=== PATIENT | male | born 1955 | race Caucasian/White ===

== ENCOUNTER 2017-12-04 06:04 | Day surgery (SDC) | payer BC ==
[2017-12-03 11:42] VITALS: BMI 33.8
[2017-12-04] MEDS ORDERED: MIDAZOLAM HCL 2 MG/2 ML SINGLE DOSE VIAL ONE ×2 (07:22→08:31)
[2017-12-04] MEDS ORDERED: ROPIVACAINE HCL 0.5% 30ML VIAL ONE (07:35)
[2017-12-04] MEDS ORDERED: DEXAMETHASONE SOD PHOSPHATE/PF 10 MG/ML SDV ONE (07:35)
[2017-12-04] MEDS ORDERED: PROPOFOL 20 ML ONE ×2 (07:52)
[2017-12-04] MEDS ORDERED: SUCCINYLCHOLINE CHLORIDE 200 MG/10 ML VIAL ONE (07:53)
[2017-12-04] MEDS ORDERED: ceFAZolin SODIUM 1 GM VIAL IVPB ONE (08:29)
--- NOTE | 2017-12-04 09:20 | HP ---
Satellite H - Chief Complaint Chief Complaint: left shoulder pain - Past Medical History Allergies/Adverse Reactions: Allergies Allergy/AdvReac Type Severity Reaction Status Date / Time codeine AdvReac Mild Verified 12/04/17 06:31 - Current Medications Current Medications: Home Medications Medication Instructions Recorded Allopurinol [Zyloprim -] 100 mg PO DAILY 09/04/13 Albuterol Sulfate Inhaler - 1 - 2 inh PO Q4H PRN 12/03/17 [Ventolin HFA Inhaler -] Oxycodone HCl/Acetaminophen 1 - 2 tab PO Q6H #30 tab MDD 6 12/04/17 [Percocet 5-325 mg Tablet] Satellite Physical Exam - Physical Examination Vital Signs: Vital Signs Period Temp Pulse Resp BP Sys/Bonner Pulse Ox Last 24 Hr 98.4 F-98.4 F 78-78 20-20 122-122/76-76 95 General Appearance: Well Nourished, Well Developed, Alert & Oriented x3 ENT: Clear Lung: Normal air movement Heart: Regular rate & rhythm Extremities: Other (left shoulder- + ttp, decr rom, + empty can, + neer, + chew, nvi MRI + rct) Neurological: Intact, Alert, Oriented Satellite Impression/Plan - Impression/Plan Impression: left shoulder rct Operative Procedure: left shoulder arthroscopy with EDI HILLIARD Date to be Performed: 12/04/17
--- NOTE | 2017-12-04 09:21 | OP ---
Operative Note - Note: Operative Date: 12/04/17 ([facility]) Pre-Operative Diagnosis: left shoulder rct Operation: left shoulder arthroscopy with RCR, SAD Implants: arthrex speedbridge Post-Operative Diagnosis: Same as Pre-op Surgeon: Asher Robb Cooker Pie Filling: Reyes Echavarria) Anesthesiologist/DIRECTOR OF ENTERPRISE APPLICATIONS: Robert Diaz Anesthesia: General, Local Specimens Removed: shavings Estimated Blood Loss (mls): 10 Operative Report Dictated: Yes
[2017-12-04] MEDS ORDERED: ONDANSETRON 4 MG/2 ML VIAL IVPUSH PRN (09:32)
[2017-12-04] MEDS ORDERED: oxyCODONE HCL 5 MG TABLET PO PRN (09:32)
[2017-12-04] MEDS ORDERED: LACTATED RINGERS SOLUTION 1,000 ML IV SCH (09:45)
--- NOTE | 2017-12-04 10:39 | SPEC ---
DATE OF OPERATION: 12/04/2017 PREOPERATIVE DIAGNOSIS: Left rotator cuff tear. POSTOPERATIVE DIAGNOSIS: Left rotator cuff tear. PROCEDURE: Left rotator cuff repair arthroscopically with SpeedBridge and subacromial decompression. SURGICAL ATTENDING: Asher Robb MD RAILROAD BRAKEMAN: LEOBARDO Vitale, and Vitaly Pierson MD ANESTHESIA: Regional and general with endotracheal intubation. CLOSURE: SpeedBridge for repair, 3-0 nylon for skin. ESTIMATED BLOOD LOSS: Negligible. COMPLICATIONS: None. CONDITION: To recovery room in stable condition. DESCRIPTION OF OPERATIVE PROCEDURE: The patient was taken to the operating room on December 04, 2017. General and regional anesthesia was administered by the anesthesiologist. IV Kefzol was administered prophylactically prior to the case. The patient was placed in the beach chair position with all prominences well padded. The left shoulder area was prepped and draped in the usual sterile fashion. First, a diagnostic arthroscopy of the glenohumeral joint was made. Posterior portal was made 2 fingerbreadths below the acromion with a 15 blade followed by a blunt trocar. Circumferential exam of the glenohumeral joint revealed the following: Intact labrum circumferentially, intact glenoid and humeral head articular cartilage, intact biceps and biceps anchor, intact subscapularis through its insertion. Looking superiorly, there was a large rotator cuff tear. The fluid was drained from the shoulder, and the trocar was removed. The posterior trocar was redirected in the subacromial space. An accessory lateral and anterior portal were made with a 15 blade followed by a blunt trocar. The lateral portal was used as the working portal. Through this portal, an ArthroCare device was applied. This was used to debride the soft tissue in the subacromial aspect. The coracoacromial ligament was identified and detached off the anterior acromion and was visualized to drop inferiorly and was further debrided. The bone on the undersurface of the acromion was burred to the appropriate level giving appropriate height for the rotator cuff beneath. Looking inferiorly, there was a large rotator cuff tear, soft tissue encasing the rotator cuff, and the deltoid recess was debrided using ArthroCare device and the shaver. The bed on the greater tuberosity was burred to give a good bed for the double row SpeedBridge repair. A grasper was used to ensure that the rotator cuff was able to be reduced sufficiently to the greater tuberosity. The rotator cuff was freed on the bursal and the articular surface to allow more excursion of the tendon. Two anchors preloaded with FiberTape suture were placed on the articular margin, one more anteriorly, one more posteriorly. They were shuttled through the anterior portal with a grasper. Each limb was individually passed through the rotator cuff, two anteriorly and two posteriorly. One anterior limb and one posterior limb was delivered through the lateral portal. They were placed through the eyelet hole of the more lateral anchor, which was then malleted into place much more laterally, reducing the rotator cuff to the greater tuberosity. The swivel was then screwed into place. The sutures were then cut flush with the bone. Next, one anterior and one posterior limb that was remaining were shuttled from the anterior to the lateral portal. The sutures were placed through the eyelet hole of the anterior anchor, which was malleted on the anterior aspect of the greater tuberosity. After tensioning it, it was deployed the entire way and then screwed home giving an excellent reduction to the anterior portion of the rotator cuff. After the sutures were cut, the rotator cuff was probed and found to have good stability with excellent matting down of the rotator cuff to the greater tuberosity. The shoulder was taken through the range of motion and found to have good clearance on the undersurface of the acromion with good, solid repair. The shoulder was drained of the fluid. The portals were closed with 3-0 nylon suture. A sterile pressure dressing followed by a shoulder immobilizer was applied. The patient was awoken from anesthesia and transferred to recovery room in stable condition. No complications. Estimated blood loss negligible. Joao [id number]
[2017-12-04 11:57] VITALS: BP 100/72; PULSE 78; TEMP 97.8
--- NOTE | 2017-12-05 17:02 | PATH ---
Surgical Pathology Report Patient Name: TANNER TALAMANTES JR [facility]. Rec. #: [id number] /Age/Gender: 1955 (Age: 62) / M Account: [id number] Location: [facility] SUR[facility] Taken: 12/04/2017 Received: 12/04/2017 Reported: 12/05/2017 Physicians: Vitaly Pierson M.D. Specimen(s) Received LEFT SHOULDER SHAVINGS Clinical History Left shoulder rotator cuff repair Final Diagnosis SHOULDER SHAVINGS, LEFT, ARTHROSCOPY AND ROTATOR CUFF REPAIR: FRAGMENTS OF BENIGN CARTILAGE, DENSE FIBROCONNECTIVE TISSUE, ADIPOSE TISSUE, SYNOVIUM, BONE, AND SKELETAL MUSCLE. Electronically Signed Ryann Siddiqui M.D. Gross Description Received in formalin labeled "left shoulder shavings" are multiple fragments of white-allison fibrocartilaginous soft tissue measuring 3 x 3 x 1 cm aggregate. Early Childhood Specialist sections are submitted in one cassette. TARIQ/12/04/2017 leonor/12/04/2017
== END 2017-12-04 11:45 | disposition home or self-care (01) ==
LOC: JASU-SURG 06:04
PROVIDERS: ATTEND Orthopaedic Surgery
PROC: 0RNK4ZZ Release Left Shoulder Joint, Percutaneous Endoscopic Approach (ICD-10-PCS; principal; 2017-12-04 08:00)
PROC: 0LQ24ZZ Repair Left Shoulder Tendon, Percutaneous Endoscopic Approach (ICD-10-PCS; 2017-12-04 08:00)
DX: M75.102 Unspecified rotator cuff tear or rupture of left shoulder, not specified as traumatic (principal)
CPT/HCPCS: 88304-TC; 94760

== ENCOUNTER 2019-02-20 06:04 | Day surgery (SDC) | payer BC ==
--- NOTE | 2019-02-19 13:46 | HP ---
Satellite H - Chief Complaint Chief Complaint: right hand pain - Past Medical History Allergies/Adverse Reactions: Allergies Allergy/AdvReac Type Severity Reaction Status Date / Time codeine AdvReac Mild Verified 12/04/17 06:31 - Current Medications Current Medications: Home Medications Medication Instructions Recorded Allopurinol [Zyloprim -] 100 mg PO DAILY 09/04/13 Albuterol Sulfate Inhaler - 1 - 2 inh PO Q4H PRN 12/03/17 [Ventolin HFA Inhaler -] Oxycodone HCl/Acetaminophen 1 - 2 tab PO Q6H #30 tab MDD 6 12/04/17 [Percocet 5-325 mg Tablet] Satellite Physical Exam - Physical Examination General Appearance: Well Nourished, Well Developed, Alert & Oriented x3 ENT: Clear Lung: Normal air movement Extremities: Other (right hand- + ttp basal joint, decr rom, nvi, xrays show grade 4 basal jt OA) Neurological: Intact, Alert, Oriented Satellite Impression/Plan - Impression/Plan Impression: right basal joint OA Operative Procedure: right basal joint arthroplasty, LRTI Date to be Performed: 02/19/19
[2019-02-19 17:08] VITALS: BMI 33.0
[2019-02-20] MEDS ORDERED: ROPIVACAINE HCL 0.5% 30ML VIAL ONE (07:37)
[2019-02-20] MEDS ORDERED: MIDAZOLAM HCL 2 MG/2 ML SINGLE DOSE VIAL ONE ×4 (07:39→09:05)
[2019-02-20] MEDS ORDERED: ceFAZolin SODIUM 1 GM VIAL IVPB ONE (08:20)
[2019-02-20] MEDS ORDERED: PROPOFOL 20 ML ONE ×2 (08:24)
[2019-02-20] MEDS ORDERED: SUCCINYLCHOLINE CHLORIDE 200 MG/10 ML SYRINGE ONE (08:24)
[2019-02-20] MEDS ORDERED: LIDOCAINE HCL 1%, 10 MG/ML (20ML VIAL) ONE (08:40)
[2019-02-20] MEDS ORDERED: BUPIVACAINE HCL/PF 0.5% (5 MG/ML) 30 ML VIAL IJ ONE (08:40)
[2019-02-20] MEDS ORDERED: LIDOCAINE HCL 1%, 10 MG/ML (20ML VIAL) NR ONE ×2 (08:45)
[2019-02-20] MEDS ORDERED: BUPIVACAINE HCL/PF 0.5% (5MG/ML) 10 ML VIAL IJ ONE ×2 (08:45)
--- NOTE | 2019-02-20 10:10 | OP ---
Operative Note - Note: Operative Date: 02/20/19 Pre-Operative Diagnosis: right Basal Joint OA Operation: right basal joint arthroplasty, LRTI ligament reconstruction (using FCR tendon), carpectomy Post-Operative Diagnosis: Same as Pre-op Surgeon: Asher Robb Anesthesiologist/MACHINE SHOP LEAD MAN: Emily Blanchard MD Anesthesia: Local, MAC Specimens Removed: trapezium bone Estimated Blood Loss (mls): 0 Drains, Volume Out (mls): 0 Blood Volume Replaced (mls): 0 Fluid Volume Replaced (mls): 1,000 Operative Report Dictated: Yes
[2019-02-20] MEDS ORDERED: ONDANSETRON 4 MG/2 ML VIAL IVPUSH PRN (10:19)
[2019-02-20] MEDS ORDERED: LACTATED RINGERS SOLUTION 1,000 ML IV SCH (10:30)
--- NOTE | 2019-02-20 11:34 | SPEC ---
DATE OF OPERATION: 02/20/2019 PREOPERATIVE DIAGNOSIS: Right basal joint arthritis. POSTOPERATIVE DIAGNOSIS: Right basal joint arthritis. PROCEDURE: Right basal joint arthroplasty with ligament reconstruction and tendon interposition, harvest of flexor carpi radialis tendon, and carpal bone carpectomy. SURGEON: Asher Robb MD SENIOR INSPECTOR: None. ANESTHESIA: Emily Blanchard MD DRAINS: None. COMPLICATIONS: None. SPECIMEN: Bone, right wrist. BLOOD LOSS: None. BLOOD GIVEN: None. FLUID REPLACEMENT: 1000 Plasma-Lyte. HISTORY: This patient is a 63-year-old male with preoperative diagnosis of severe, recurrent, right basal joint arthritis and pain. After understanding the potential risks, complications, alternatives, and benefits to surgery versus nonsurgical treatment, the patient elected to undergo this procedure. He understands that we are removing a bone from his wrist. We are using the FCR tendon from his volar forearm to do a ligament reconstruction. He will have pins in place for 6 weeks. He has to be careful with them. He cannot get them dirty. He cannot go in the water. There is a risk of infection. He understands his restrictions. He understands he will be have some restrictions for 12 weeks. DESCRIPTION OF PROCEDURE: Patient was brought to the operating room. Peripheral IV placed and IV sedation given. One gram of IV Ancef was given. The right upper extremity was prepped and draped in sterile fashion. A 3.0 loupe magnification was used throughout the entire case. A small lazy-S incision was marked out over the right basal joint. In addition, three small transverse stab incisions were marked out with a marking pen for later harvesting of the FCR tendon. A mix of 20 mL 0.5% Marcaine and 1% Lidocaine was injected in and around the surgical incisions. The right upper extremity was then elevated and exsanguinated with an Esmarch bandage and the tourniquet inflated to 250 mm Mercury. The case was begun by using a No. 15 scalpel blade to make a lazy-S incision over the right basal joint. Subcutaneous hemostasis was achieved with a bipolar cautery. Crossing neurovascular structures were visualized, mobilized and retracted. The hypertrophic capsule of the right basal joint was incised longitudinally with first a No. 15 scalpel blade. A small periosteal dissection done and 2-0 silk retracting sutures were placed into both dorsal and volar flap, retracting the hypertrophic capsule, exposing the first carpometacarpal joint. A rongeur was used to remove synovitis and a 0.62 K-wire placed into the trapezium. X-rays were taken to document that indeed this was the correct bone. Next, circumferential dissection was done with a No. 15 scalpel blade. An osteotome was used to remove the trapezium in its entirety. A rongeur was used to remove some small pieces of debris. The trapezium was passed off the field as specimen. Once the trapeziectomy was completed the area was irrigated and washed out and x-rays were taken documenting that the entire trapezium and osteophytes were removed. Next our attention turned to harvesting the flexor carpi radialis tendon. Three small stab incisions were made with a No. 15 scalpel blade. Subcutaneous hemostasis achieved with a bipolar cautery to try to keep the incisions as small as possible. A Littler scissor as well as a Newport elevator were used to free up the FCR tendon from its surrounding tendon sheath. Next turning our attention to the most proximal of these stab wounds, first a No. 15 scalpel blade was utilized to transversely cut the entire FCR tendon. It was then passed through each sequential more distal incision with a mosquito forceps, then using another mosquito to pass it through the first carpometacarpal joint incision. The proximal stab wounds were irrigated, washed out and closure done with some 4-0 undyed Vicryl in the subdermal layer and final skin re-approximation done with the 4-0 subcuticular Biosyn stitch and Steri-Strips. Next all excessive muscle was removed off the FCR tendon with a No. 15 scalpel blade. It was then cut in half, leaving its distal insertion. I then used a small oval bur to make a hole in the right thumb metacarpal from a dorsal radial position, down to where the volar oblique ligament usually inserts. A 3-0 nylon suture was placed into the distal aspect of the dorsal most FCR tendon half and a suture passer was placed through the base of the metacarpal and grabbed the nylon sutures and passed the FCR tendon through the base of the thumb metacarpal. Next, using a 0.062 K-wire and putting the thumb in the position of abduction and slight extension as well as pulling the longitudinal traction to maintain the trapezial space, I put the 0.062 K-wire across the base of the thumb metacarpal. X-rays were taken documenting excellent maintenance of the trapezial space and position of the hardware as well as the thumb metacarpal. Next, the FCR tendon was wrapped around, was tightened, brought around the base of the thumb metacarpal articular surface and tied to itself using 4-0 undyed Vicryl. The extra FCR tendon was then sutured to the other half of the FCR tendon using 4-0 undyed Vicryl with a slip stitch fashion and I made an anchovy which was placed into the trapezial space. This was sutured with 4-0 undyed Vicryl both to the ligament reconstruction as well as to the first CMC joint capsule. It all came together quite nicely. The area was irrigated and washed out and closure begun. The capsule was closed with 4-0 undyed Vicryl which was further sutured to the anchovy interposition graft. Then the deep dermal layer closed with 4-0 undyed Vicryl, skin re-approximated with a running subcuticular 4-0 Biosyn stitch. The area was then covered with Steri-Strips. The K-wire covered with a pin cap. The area was then washed and dried, covered with 4 x 4, fluffs to the fingers, Webril and a 5-inch Orthoglass thumb spica splint was applied and wrapped with a Cass and Coban. The tourniquet was taken down after a total tourniquet time of about 1 hour. There were no complications during the case. There was no blood loss. The patient was brought to the ambulatory recovery room in stable condition. Joao [id number]
[2019-02-20 15:32] VITALS: TEMP 97.4
[2019-02-20 15:36] VITALS: BP 130/71; PULSE 80
--- NOTE | 2019-02-24 17:53 | PATH ---
Surgical Pathology Report Patient Name: TANNER TALAMANTES JR Med. Rec. #: [id number] /Age/Gender: 1955 (Age: 63) / M Account: [id number] Location: [facility] Taken: 02/20/2019 Received: 02/20/2019 Reported: 02/24/2019 Physicians: Asher Robb M.D. Specimen(s) Received WRIST BONE Clinical History Osteoarthritis Final Diagnosis BONE, WRIST, RIGHT, BASAL JOINT ARTHROPLASTY: BONE WITH DEGENERATIVE CHANGES. BENIGN DENSE FIBROCONNECTIVE TISSUE AND SKELETAL MUSCLE. Electronically Signed Ryann Siddiqui M.D. Gross Description Received in formalin labeled "wrist bone," is a 3.5 x 3.0 x 0.6 cm aggregate of allison-yellow bone fragments. A small business representative portion is submitted in one cassette, following decalcification. 02/23/201902/23/2019
== END 2019-02-20 12:55 | disposition home or self-care (01) ==
LOC: JASU-SURG 06:04
PROVIDERS: ATTEND Orthopaedic Surgery
PROC: 0RQ Upper Joints, Repair (ICD-10-PCS; 2019-02-20)
PROC: 0PBM0ZZ Excision of Right Carpal, Open Approach (ICD-10-PCS; 2019-02-20)
PROC: 0LX50ZZ Transfer Right Lower Arm and Wrist Tendon, Open Approach (ICD-10-PCS; principal; 2019-02-20 08:00)
DX: M18.11 Unilateral primary osteoarthritis of first carpometacarpal joint, right hand (principal)
CPT/HCPCS: 76000-TC-FY; 88304-TC; 88311-TC; 94760

== ENCOUNTER 2019-02-22 06:04 | Inpatient (IN) | payer BC ==
[2019-02-22 07:22] LABS: BASO % 0.3 % (0-2.0); EOS % 1.1 % (0-4.5); HEMATOCRIT 43.8 % (35.4-49); HEMOGLOBIN 15.2 GM/dL (11.7-16.9); LYMPH % 12.2 % (8-40); MCH 31.7 pg (25.7-33.7); MCHC 34.7 g/dl (32.0-35.9); MEAN CELL VOLUME 91.3 fl (80-96); MEAN PLT VOLUME 7.9 fl (7.5-11.1); MONO % 5.7 % (3.8-10.2); NEUT % 80.7 % (42.8-82.8); PLATELET COUNT 161 K/MM3 (134-434); RDW 13.5 % (11.9-15.9); WHITE BLOOD COUNT 7.4 K/mm3 (4.0-10.0)
[2019-02-22 07:49] LABS: ALBUMIN 3.3 g/dl (3.4-5.0); ALK PHOS 46 U/L (45-117); ANION GAP 7 MMOL/L (8-16); BILIRUBIN,TOTAL 0.8 mg/dL (0.2-1); BLOOD UREA NITROGEN 15.6 mg/dL (7-18); CALCIUM 8.4 mg/dL (8.5-10.1); CHLORIDE 102 mmol/L (98-107); CO2 29 mmol/L (21-32); CREATININE 1.1 mg/dL (0.55-1.3); GLUCOSE,RANDOM 103 mg/dL (74-106); MAGNESIUM 2.1 mg/dL (1.8-2.4); POTASSIUM 4.2 mmol/L (3.5-5.1); SGOT/AST 23 U/L (15-37); SGPT/ALT 24 U/L (13-61); SODIUM 137 mmol/L (136-145); TOT PROT 6.5 g/dl (6.4-8.2)
--- NOTE | 2019-02-22 09:12 | PDOC ---
History of Present Illness - General Chief Complaint: Chest Pain Stated Complaint: CHEST PAIN Time Seen by Provider: 02/22/19 07:36 History Source: Patient Exam Limitations: No Limitations - History of Present Illness Initial Comments: 02/22/19 09:06 63M with a PMH of HTN, HLD, prior GA w/ 1 stent who presents to the ER with complaints of CP. The patient states that he was awoken out of sleep at 0500 this morning with L sided, sharp, nonradiating, pleuritic, atraumatic CP which is exacerbated by deep breaths and positional movements. He admits to SOB with the CP without nausea, vomiting, or palpitations. Past History - Past Medical History Allergies/Adverse Reactions: Allergies Allergy/AdvReac Type Severity Reaction Status Date / Time No Known Allergies Allergy Verified 02/22/19 06:10 Cardiac Disorders: Yes (STENT 2005) COPD: Yes - Immunization History Immunization Up to Date: Yes - Psycho Social/Smoking Cessation Hx Smoking History: Never smoked Information on smoking cessation initiated: No Hx Alcohol Use: No Drug/Substance Use Hx: No Review of Systems - Review of Systems Able to Perform ROS?: Yes Comments:: 02/22/19 09:13 GENERAL/CONSTITUTIONAL: No fever or chills. No weakness. HEAD, EYES, EARS, NOSE AND THROAT: No change in vision. No ear pain or discharge. No sore throat. CARDIOVASCULAR: + for CP. No palpitations or lightheadedness. RESPIRATORY: + for shortness of breath. No cough, wheezing, or hemoptysis. GASTROINTESTINAL: No abdominal pain, nausea, vomiting, diarrhea, or constipation. GENITOURINARY: No dysuria, frequency, hematuria, or change in urination. MUSCULOSKELETAL: No joint or muscle swelling or pain. No neck or back pain. SKIN: No rash or lesions. NEUROLOGIC: No headache, numbness, tingling, focal weakness, loss of consciousness, or change in strength/sensation. Is the patient limited Finnish proficient: No *Physical Exam - Vital Signs Last Vital Signs Temp Pulse Resp BP Pulse Ox 98.2 F 100 H 20 150/100 98 02/22/19 06:07 02/22/19 06:07 02/22/19 06:07 02/22/19 06:07 02/22/19 06:07 - Physical Exam 02/22/19 09:13 GENERAL: Well developed, well nourished. Awake and alert. No acute distress. HEENT: Normocephalic, atraumatic. Hearing grossly normal. Moist mucous membranes. PERRLA, EOMI. No conjunctival pallor. Sclera are non-icteric. NECK: Supple. Full ROM. No JVD. CARDIOVASCULAR: Regular rate and rhythm. No murmurs, rubs, or gallops. PULMONARY: No evidence of respiratory distress. Lungs clear to auscultation bilaterally. No wheezing, rales or rhonchi. ABDOMINAL: Soft. Non-tender. Non-distended. No rebound or guarding. No organomegaly. Normoactive bowel sounds. GENITOURINARY: No CVA tenderness bilaterally. MUSCULOSKELETAL: TTP over L anterior chest. Normal range of motion at all joints. EXTREMITIES: No cyanosis. No clubbing. No edema. No calf tenderness or swelling. SKIN: Warm and dry. Normal capillary refill. No rashes. No jaundice. NEUROLOGICAL: Alert, awake, appropriate. Cranial nerves 2-12 grossly intact. Normal speech. Gait is normal without ataxia. PSYCHIATRIC: Cooperative. Good eye contact. Appropriate mood and affect. ED Treatment Course - LABORATORY CBC & Chemistry Diagram: 02/22/19 06:45 02/22/19 06:45 - ADDITIONAL ORDERS Additional order review: Laboratory Results 02/22/19 06:45 Sodium 137 Potassium 4.2 Chloride 102 Carbon Dioxide 29 Anion Gap 7 L BUN 15.6 Creatinine 1.1 Est GFR (CKD-EPI)AfAm 83.53 Est GFR (CKD-EPI)NonAf 72.07 Random Glucose 103 Calcium 8.4 L Magnesium 2.1 Total Bilirubin 0.8 AST 23 ALT 24 Alkaline Phosphatase 46 Creatine Kinase 237 Creatine Kinase Index 0.5 CK-MB (CK-2) 1.2 Troponin I < 0.02 Total Protein 6.5 Albumin 3.3 L 02/22/19 06:45 RBC 4.80 MCV 91.3 MCHC 34.7 RDW 13.5 MPV 7.9 Neutrophils % 80.7 Lymphocytes % 12.2 Monocytes % 5.7 Eosinophils % 1.1 Basophils % 0.3 - RADIOLOGY Radiology Studies Ordered: Category Date Time Status CHEST CTA [CT] Stat CT Scan 02/22/19 07:46 Taken Medical Decision Making - Medical Decision Making 02/22/19 09:14 63M with MMP including cardiac issues who presents with pleuritic CP. Pt recently had an orthopedic surgery on his R wrist which is splinted and he admits to being more static since his surgery 2/2 pain which makes PE a concerning source of his CP. Pt has a HEART score of 4 with negative troponin requiring tele obs. Pending imaging. Labs WNL. Discharge - Discharge Information Problems reviewed: Yes Clinical Impression/Diagnosis: Atypical chest pain Condition: Guarded - Admission Yes - Follow up/Referral - Patient Discharge Instructions - Post Discharge Activity
[2019-02-22] MEDS ORDERED: KETOROLAC TROMETHAMINE 30 MG/1 ML VIAL IVPUSH ONE (09:33)
[2019-02-22] MEDS ORDERED: KETOROLAC TROMETHAMINE 30 MG/1 ML VIAL ONE (09:40)
--- NOTE | 2019-02-22 09:46 | PDOC ---
Documentation entered by Karie Ahmadi SCRIBE, acting as scribe for Alfredo Fagan MD. Alfredo Fagan MD: This documentation has been prepared by the Daiana alatorre Nirvannie, SCRIBE, under my direction and personally reviewed by me in its entirety. I confirm that the documentation accurately reflects all work, treatment, procedures, and medical decision making performed by me. Attending Attestation - Resident Resident Name: EliamalEnrico - ED Attending Attestation I have performed the following: I have examined & evaluated the patient, The case was reviewed & discussed with the resident, I agree w/resident's findings & plan, Exceptions are as noted - HPI HPI: 02/22/19 09:39 The patient is a 63 year old male, with a significant past medical history of NC (s/p cardiac stenting x1), HTN, and HLD, who presents to the emergency department with, left sided, sharp, pleuritic chest pain starting at 5am this morning with associated shortness of breath. He denies palpitations or diaphoresis. He denies any recent fevers, chills, headache or dizziness. He denies any recent nausea, vomit, diarrhea or constipation.He denies any recent dysuria, frequency, urgency or hematuria. Allergies: NKDA Primary Care Physician: Dr. Rojas Cardiology: Dr. Keith Pulmonology: Dr. Cisse - Physicial Exam PE: 02/22/19 10:00 "GENERAL: Awake, alert, and fully oriented, in no acute distress. HEAD: No signs of trauma EYES: PERRLA, EOMI, sclera anicteric, conjunctiva clear ENT: Auricles normal inspection, hearing grossly normal, nares patent, oropharynx clear without exudates. Moist mucosa NECK: Nontender, no stepoffs, Normal ROM, supple, no lymphadenopathy, JVD, or masses LUNGS: Breath sounds equal, clear to auscultation bilaterally. No wheezes, and no crackles HEART: Regular rate and rhythm, normal S1 and S2, no murmurs, rubs or gallops ABDOMEN: Soft, nontender, normoactive bowel sounds. No guarding, no rebound. No masses EXTREMITIES: Normal range of motion, no edema. No clubbing or cyanosis. No cords, erythema, or tenderness NEUROLOGICAL: Cranial nerves II through XII intact. 5/5 strength and sensation in all extremities, Normal speech, normal gait, normal cerebellar function SKIN: Warm, Dry, normal turgor, no rashes or lesions noted. - Medical Decision Making 02/22/19 10:00 63 M with CP + SOB. Will r/o PE given pleuritic nature of pain and tachycardia. Also consider ACS. - Labs, trop - CTA chest - Admit tele
--- NOTE | 2019-02-22 10:11 | EKG ---
Test Reason : Blood Pressure : / mmHG Vent. Rate : 085 BPM Atrial Rate : 085 BPM P-R Int : 170 ms QRS Dur : 070 ms QT Int : 346 ms P-R-T Axes : 039 046 042 degrees QTc Int : 411 ms POOR DATA QUALITY, INTERPRETATION MAY BE ADVERSELY AFFECTED NORMAL SINUS RHYTHM NORMAL ECG NO PREVIOUS ECGS AVAILABLE Confirmed by CAROL FRANCO MD ([id number]) on 02/22/2019 10:11:27 AM Referred By: Confirmed By:CAROL FRANCO MD
--- NOTE | 2019-02-22 12:16 | HP ---
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 History Source: Patient - Past Medical History Cardiovascular: Yes: CAD, HTN, Hyperlipdemia Pulmonary: Yes: COPD - Smoking History Smoking history: Never smoked - Alcohol/Substance Use Hx Alcohol Use: No Home Medications - Allergies Allergies/Adverse Reactions: Allergies Allergy/AdvReac Type Severity Reaction Status Date / Time No Known Allergies Allergy Verified 02/22/19 06:10 Family Medical History Family Hx Cancer: Father (HTN) Review of Systems - Review of Systems Constitutional: denies: Diaphoresis, Fever, Lethargy Eyes: denies: Blind Spots, Blurred Vision, Double Vision HENT: denies: Difficult Swallowing, Ear Discharge, Ear Pain, Epistaxis Neck: denies: Decreased ROM, Lumps, Pain on Movement, Stiffness Cardiovascular: reports: Chest Pain, Shortness of Breath. denies: Edema, Palpitations Respiratory: denies: Cough, Exercise Intolerance, Hemoptysis, Orthopnea Gastrointestinal: denies: Abdominal Pain, Bloating, Constipation, Diarrhea, Dysphagia Genitourinary: denies: Discharge, Dysuria, Flank Pain, Frequency Breasts: reports: Breast Implants Musculoskeletal: denies: Crepitus, Decreased ROM, Extremity Pain Integumentary: denies: Bruising, Change in Color, Eczema, Erythema Neurological: denies: Change in Speech, Confusion, Dizziness Endocrine: denies: Excessive Sweating, Flushing, Increased Hunger Hematology/Lymphatic: denies: Easily Bruised, Excessive Bleeding Physical Examination Vital Signs: Vital Signs Temperature 98.2 F 02/22/19 06:07 Pulse Rate 100 H 02/22/19 06:07 Respiratory Rate 20 02/22/19 06:07 Blood Pressure 150/100 02/22/19 06:07 O2 Sat by Pulse Oximetry (%) 98 02/22/19 06:07 General: Middle-aged man, no distress HEENT; mucous membranes moist, no anemia, no jaundice, PERRLA, no nystagmus Neck: No JVD, supple, no bruit, thyroid palpably normal, normal carotid pulsations. Chest: Bilateral CTA CVS: S1-S2 regular no murmur/gallop/rub Abdomen: Non-distended, soft, bowel sounds present. 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 , no gross motor sensory deficit Labs: CBC, BMP 02/22/19 06:45 02/22/19 06:45 Imaging - Results Chest X-ray: Report Reviewed (Normal) Cat Scan: Report Reviewed (Chest No PE) EKG: Report Reviewed (NSR no acute St T changes) Problem List - Problems (1) Atypical chest pain Assessment/Plan: H/O CAD atypical CP normal serial Ce F/U ECHO, Cardiology input cont ASA and statin not on B blockers at home Code(s): R07.89 - OTHER CHEST PAIN (2) CAD (coronary artery disease) Assessment/Plan: s/P stent cont ASA and Statin Problems reviewed: Yes Code(s): I25.10 - ATHSCL HEART DISEASE OF [place] CORONARY ARTERY W/O ANG PCTRS (3) HTN (hypertension) Assessment/Plan: Welll controlled Problems reviewed: Yes Code(s): I10 - ESSENTIAL (PRIMARY) HYPERTENSION (4) Hypercholesteremia Assessment/Plan: On statin Problems reviewed: Yes Code(s): E78.00 - PURE HYPERCHOLESTEROLEMIA, UNSPECIFIED (5) COPD (chronic obstructive pulmonary disease) Assessment/Plan: Post 911 disese cont Spiriva, flovent and Proair PRN Problems reviewed: Yes Code(s): J44.9 - CHRONIC OBSTRUCTIVE PULMONARY DISEASE, UNSPECIFIED
[2019-02-22] MEDS ORDERED: traMADol HCL 50 MG TABLET PO PRN (18:21)
[2019-02-22] MEDS ORDERED: ALBUTEROL SO4 8 GM HFA INHALER IH PRN (18:25)
[2019-02-22] MEDS ORDERED: KETOROLAC TROMETHAMINE 30 MG/1 ML VIAL IVPUSH SCH (18:30)
[2019-02-22 18:48] VITALS: BMI 33.1
[2019-02-22] MEDS: KETOROLAC TROMETHAMINE 30 MG/1 ML VIAL IVPUSH PRN (19:22)
[2019-02-22] MEDS: LOSARTAN POTASSIUM 50 MG TABLET (FP) PO SCH (19:22)
[2019-02-22] MEDS: ACETAMINOPHEN 325 MG TABLET (FP) PO SCH (21:20)
[2019-02-23] MEDS: KETOROLAC TROMETHAMINE 30 MG/1 ML VIAL IVPUSH PRN (04:11)
[2019-02-23] MEDS: ACETAMINOPHEN 325 MG TABLET (FP) PO SCH (05:39)
[2019-02-23 07:02] LABS: BASO % 0.2 % (0-2.0); EOS % 1.6 % (0-4.5); HEMOGLOBIN 14.3 GM/dL (11.7-16.9); LYMPH % 19.5 % (8-40); MCH 31.6 pg (25.7-33.7); MCHC 34.8 g/dl (32.0-35.9); MEAN CELL VOLUME 90.8 fl (80-96); MONO % 10.8 % (3.8-10.2); NEUT % 67.9 % (42.8-82.8); PLATELET COUNT 168 K/MM3 (134-434); RBC 4.51 M/mm3 (4.00-5.60); RDW 13.6 % (11.9-15.9); WHITE BLOOD COUNT 5.6 K/mm3 (4.0-10.0)
[2019-02-23 07:21] LABS: CHOLESTEROL 188 mg/dL (50-200); HDL CHOLESTEROL 57 mg/dL (40-60); LDL CHOLESTEROL (ONLY SJRH) 110 mg/dL (5-100); TRIGLYCERIDES 77 mg/dL (0-150)
[2019-02-23 07:34] LABS: BLOOD UREA NITROGEN 16.5 mg/dL (7-18); CALCIUM 8.5 mg/dL (8.5-10.1); POTASSIUM 3.9 mmol/L (3.5-5.1)
[2019-02-23] MEDS: LOSARTAN POTASSIUM 50 MG TABLET (FP) PO SCH (09:01)
--- NOTE | 2019-02-23 09:39 | PN ---
Progress Note, Physician Chief Complaint: Feels better History of Present Illness: Admitted with chest pain and SOB EKG ,Xray chest and cardiac enzymes neg Being evaluated by Dr Keith - Current Medication List Current Medications: Active Medications Acetaminophen (Tylenol -) 325 mg PO TID [facility] Last Admin: 02/23/19 05:39 Dose: Not Given Albuterol Sulfate (Ventolin Hfa Inhaler -) 2 puff IH Q4H PRN PRN Reason: SHORT OF BREATH/WHEEZING Aspirin (Asa -) 81 mg PO DAILY [facility] Last Admin: 02/23/19 09:01 Dose: 81 mg Ketorolac Tromethamine (Toradol Injection -) 15 mg IVPUSH Q8H-IV PRN PRN Reason: PAIN LEVEL 7 - 10 Stop: 02/27/19 18:29 Last Admin: 02/23/19 04:11 Dose: 15 mg Losartan Potassium (Cozaar -) 50 mg PO DAILY [facility] Last Admin: 02/23/19 09:01 Dose: 50 mg Tiotropium Palm (Spiriva Respimat) 2 puff IH DAILY [facility] Tramadol HCl (Ultram -) 50 mg PO Q8H PRN PRN Reason: PAIN LEVEL 6-10 - Objective Vital Signs: Vital Signs Temperature 98.1 F 02/23/19 06:00 Pulse Rate 68 02/23/19 06:00 Respiratory Rate 18 02/23/19 06:00 Blood Pressure 105/68 02/23/19 06:00 O2 Sat by Pulse Oximetry (%) 96 02/22/19 21:00 Constitutional: Yes: No Distress, Pallor HENT: Yes: WNL Neck: Yes: WNL Cardiovascular: Yes: WNL Respiratory: Yes: WNL Gastrointestinal: Yes: WNL ...Rectal Exam: Yes: Deferred Breast(s): Yes: WNL Extremities: Yes: Other (Rt hand has the short arm cast) Labs: CBC, BMP 02/23/19 05:35 02/23/19 05:35 Assessment/Plan Will do further work ups as per cardiology
[2019-02-23] MEDS ORDERED: ASPIRIN 81 MG CHEWABLE TABLETS PO SCH (10:00)
[2019-02-23] MEDS ORDERED: TIOTROPIUM BROMIDE 2.5 MCG (SPIRIVA) RESPIMAT INHALER IH SCH (10:00)
[2019-02-23 11:21] VITALS: BP 126/80; PULSE 81; TEMP 98.2
--- NOTE | 2019-02-23 11:24 | CONS ---
CARDIOLOGY CONSULTATION DATE OF CONSULTATION: 02/23/2019 REQUESTING PHYSICIAN: Cali Rojas MD CHIEF COMPLAINT: Localized left parasternal, sharp pleuritic pain. 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 Patient last week developed an upper respiratory tract infection with hacking cough associated with greenish expectoration. Patient states that he had contracted an upper respiratory tract infection, and he treated himself with antihistamines and Robitussin. There is no history of chills, fever, or night sweats. On Saturday morning, he developed localized, sharp, pleuritic left parasternal pain that was persistent, and he decided to come to the hospital. There is no history of chest, back, jaw pain or discomfort. There is a history of chronic dyspnea, which became more pronounced since he developed the upper respiratory tract infection. There is no history of hemoptysis. No history of paroxysmal or nocturnal dyspnea or orthopnea. Patient states since 10 AM yesterday the pain slowly has subsided, and he is presently pain free. Patient on Saturday had surgery on his right thumb for a traumatic injury. PAST HISTORY: As mentioned in the history of present illness. History of gastroesophageal reflux disease. SURGICAL HISTORY: 1. Status post repair of left rotator cuff tear. 2. Surgery on the right thumb for traumatic injury. 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 Has an occasional drink. Does not smoke. Has 2 sons who are healthy. No history of excessive use of caffeine. FAMILY HISTORY: Father in his 70s. Cause is not known. Mother at age 60 years apparently hit by an automobile. Three brothers, 4 sisters. All of them are healthy. ALLERGIES: Intolerance to CODEINE. History of hayfever. CURRENT MEDICATIONS: Losartan 15 mg p.o. daily, Spiriva 2 inhalations daily. Ventolin inhaler 2 puffs every 4 hours p.r.n., aspirin 81 mg p.o. daily, acetaminophen 325 mg p.o. t.i.d., Tramadol 50 mg every 8 hours p.r.n. Outpatient medications also included the following: Livalo 2 mg p.o. every other day, hydrochlorothiazide 12.5 mg p.o. daily. REVIEW OF SYSTEMS: Constitutional: No history of chills, fever, or night sweats. No history of unintentional weight loss. HEENT: No history of headaches, diplopia, blurred vision. No history of epistaxis, hoarseness, tinnitus, or deafness. Cardiovascular: See history of present illness. Respiratory: See history of present illness. Gastrointestinal: History of GERD. No history of nausea, vomiting, melena, or hematemesis. No history of abdominal pain or discomfort. No history of change in bowel habits. Endocrine: No history of polyuria or polydipsia. No history of intolerance to cold or warm weather. Genitourinary: No history of dysuria, frequency, hematuria, or urgency reported. Musculoskeletal: History of osteoarthritis of both knees. No history of myalgias. Hematologic/Lymphatic: No history of anemia, bleeding, or ecchymosis. No history of lymphadenopathy. PHYSICAL EXAMINATION: General: A 63-year-old obese gentleman who is in no distress. No pallor, cyanosis, clubbing, or jaundice. Vital Signs: Weight 104.78 kg, blood pressure 134/83 mmHg, pulse 90 beats per minute and regular, temperature 98.3 degrees Fahrenheit, respirations 16 per minute, oxygen saturation 96% on room air. Neck: Supple. No jugular venous distention. Carotids are 2+. Upstrokes are normal. No bruits are heard. No thyromegaly is present. Heart: PMI is in the 5th intercostal space. No heaves or thrills. Heart sound is slightly distant. No murmur or gallops are heard. There are no rubs. Lungs: Clear on auscultation with decreased breath sounds at both bases. Chest: Normal AP diameter. Expansion is symmetrical. There is no point tenderness elicited. Abdomen: Obese, soft, and nontender. Liver edge is palpable. No splenomegaly. No palpable masses. Bowel sounds are present. No bruits are heard. Extremities: No calf tenderness or dependent edema. Pulses are equal. DIAGNOSTIC DATA: CT of the chest. Impression: There is no gross evidence of pulmonary embolus within the main pulmonary artery and itself proximal branches bilaterally. Normal size and enhancement of the thoracic including abdominal aorta without aneurysmal dilatation or dissection. Calcification of the coronary arteries are present. Bibasilar atelectatic changes with pleural thickening in the posterior costophrenic angles without gross evidence of infiltrate. ECG of February 22, 2019: Sinus rhythm with intra-atrial conduction abnormality. Normal ST and T waves. No previous history was available for comparison. LABORATORY DATA: Chemistry February 23, 2019, sodium 138, potassium 3.9, chloride 103, CO2 is 28 mmol/L, BUN 16.5, creatinine 1.0 mg/dL. Hemoglobin A1C 5.4%, calcium 8.5. Troponins on February 22, 2019, less than 0.02, less than 0.02. Lipid profile; total cholesterol 188, triglycerides 77, LDL cholesterol 110, HDL cholesterol 57 mg/dL. TSH 2.14. CBC February 23, 2019, WBC 5600, hemoglobin 14.3 g/dL, hematocrit 41.0%, platelet count 168,000. Normal differential with slightly elevated monocytes 10.8%. IMPRESSION: 1. Localized left parasternal sharp, pleuritic pain etiology most likely appears to be musculoskeletal in origin precipitated by persistent coughing. 2. Recent upper respiratory tract infection. 3. History of 911 syndrome aggravated by recent upper respiratory tract infection. 4. Bronchial asthma/chronic obstructive pulmonary disease. 5. Coronary artery disease status post percutaneous coronary intervention/stenting, stable angina pectoris. 6. Hypertension. 7. Hypercholesterolemia. 8. Exogenous obesity. RECOMMENDATION: 1. Follow up ECG. 2. Continue current medications. 3. May need to increase the dose of Livalo as his LDL cholesterol is elevated. 4. Follow up with maintenance technician. 5. Follow up as an outpatient with PCP and at my office. Thank you for your referral. Yours Sincerely, JUSTUS BAZAN M.D. [id number]
== END 2019-02-23 11:23 | disposition home or self-care (01) | DRG 313 ==
LOC: JER 06:04 → JERBED 09:16 → INTOOBSV 09:16 → MERGE 12:12 → OBSVTOIN 12:12 → J4S 18:21
PROVIDERS: ADMIT Internal Medicine; ATTEND Internal Medicine
DX: R07.89 Other chest pain (principal); I10 Essential (primary) hypertension; E78.5 Hyperlipidemia, unspecified; I25.2 Old myocardial infarction; J44.9 Chronic obstructive pulmonary disease, unspecified; I25.10 Atherosclerotic heart disease of native coronary artery without angina pectoris; E78.00 Pure hypercholesterolemia, unspecified; K21.9 Gastro-esophageal reflux disease without esophagitis; E66.9 Obesity, unspecified; Z68.30 Body mass index [BMI] 30.0-30.9, adult
CPT/HCPCS: 36415; 71046-TC-FY; 71275-TC; 80048; 80053; 80061; 82550; 82553; 83036; 83721; 83735; 84443; 84484; 85025; 93005; 93010; 99285-25; G0378; Q9967

== ENCOUNTER 2020-04-07 22:50 | Inpatient (IN) | payer BC ==
[2020-04-07] MEDS ORDERED: DEXAMETHASONE SOD PHOSPHATE 10 MG/1 ML VIAL IVPUSH ONE (23:55)
[2020-04-07] MEDS ORDERED: ACETAMINOPHEN 500 MG TABLET (FP) PO ONE (23:56)
[2020-04-08] MEDS ORDERED: ACETAMINOPHEN 325 MG TABLET (FP) ONE (00:14)
[2020-04-08] MEDS ORDERED: DEXAMETHASONE SOD PHOSPHATE 10 MG/1 ML VIAL ONE (00:14)
[2020-04-08] MEDS: ALBUTEROL SO4 2.5/IPRATROPIUM 0.5 INH SOL 3 ML VIAL.NEB. NEB SCH ×3 (00:21→00:53)
[2020-04-08 01:00] LABS: BASO % 0.4 % (0-2.0); EOS % 0.1 % (0-4.5); HEMATOCRIT 44.4 % (35.4-49); HEMOGLOBIN 15.2 GM/dL (11.7-16.9); LYMPH % 22.9 % (8-40); MCH 30.5 pg (25.7-33.7); MCHC 34.2 g/dl (32.0-35.9); MONO % 8.9 % (3.8-10.2); NEUT % 67.7 % (42.8-82.8); PLATELET COUNT 118 K/MM3 (134-434); RBC 4.99 M/mm3 (4.00-5.60); RDW 13.4 % (11.9-15.9); WHITE BLOOD COUNT 3.5 K/mm3 (4.0-10.0)
[2020-04-08 01:04] LABS: VENOUS BASE EXCESS 0.7 mmol/L (-2-2); VENOUS O2 SATURATION 47.5 % (70-80); VENOUS PCO2 43.7 mmHg (38-52); VENOUS PH 7.391 (7.310-7.410)
[2020-04-08 01:15] LABS: INR 1.15 (0.83-1.09); PROTHROMBIN TIME (PATIENT) 14.1 SEC (9.7-13.0)
[2020-04-08 01:17] LABS: ACTIVATED PTT 31.5 SECONDS (25.2-36.5)
[2020-04-08 01:22] LABS: CHLORIDE 107 mmol/L (98-107); POTASSIUM 4.1 mmol/L (3.5-5.1); SODIUM 141 mmol/L (136-145)
[2020-04-08 01:24] LABS: CALCIUM 8.3 mg/dL (8.5-10.1)
[2020-04-08 01:25] LABS: ALBUMIN 3.4 g/dl (3.4-5.0); ANION GAP 6 MMOL/L (8-16); BLOOD UREA NITROGEN 19.4 mg/dL (7-18); CO2 28 mmol/L (21-32); GLUCOSE,RANDOM 88 mg/dL (74-106)
[2020-04-08 01:27] LABS: BILIRUBIN,DIRECT 0.2 mg/dL (0.0-0.2); CREATININE 1.3 mg/dL (0.55-1.3)
[2020-04-08 01:28] LABS: SGOT/AST 68 U/L (15-37); SGPT/ALT 63 U/L (13-61)
[2020-04-08 01:29] LABS: BILIRUBIN,TOTAL 0.6 mg/dL (0.2-1); LDH 287 U/L (87-246); TOT PROT 6.6 g/dl (6.4-8.2)
[2020-04-08 01:30] LABS: ALK PHOS 49 U/L (45-117)
[2020-04-08] MEDS ORDERED: ALBUTEROL SO4 2.5/IPRATROPIUM 0.5 INH SOL 3 ML VIAL.NEB. NEB SCH (01:30)
[2020-04-08] MEDS ORDERED: ALBUTEROL SO4 HFA INHALER IH PRN (21:14)
[2020-04-08] MEDS ORDERED: ACETAMINOPHEN 500 MG TABLET (FP) PO ONE (21:45)
[2020-04-08 21:49] LABS: PH,URINE 5.5 (5.0-8.0); URINE APPEARANCE CLEAR; URINE BILIRUBIN NEGATIVE (NEGATIVE); URINE COLOR YELLOW; URINE GLUCOSE (UA) NEGATIVE (NEGATIVE); URINE KETONE NEGATIVE (NEGATIVE); URINE LEUK ESTERASE NEGATIVE (NEGATIVE); URINE NITRITE NEGATIVE (NEGATIVE); URINE PROTEIN TRACE (NEGATIVE)
[2020-04-08] MEDS: MONTELUKAST NA 10 MG TABLET PO SCH (22:23)
[2020-04-08] MEDS: BUDESONIDE/FORMETEROL FUMARATE 160/4.5 mcg INHALER IH SCH (22:23)
[2020-04-09] MEDS: BUDESONIDE/FORMETEROL FUMARATE 160/4.5 mcg INHALER IH SCH ×2 (09:18→21:55)
[2020-04-09] MEDS: ACETAMINOPHEN 500 MG TABLET (FP) PO PRN ×2 (09:40→18:47)
[2020-04-09] MEDS ORDERED: REMDESIVIR 200 MG in SODIUM CHLORIDE 210 ML IVPB ONE (12:00)
[2020-04-09] MEDS: MONTELUKAST NA 10 MG TABLET PO SCH (21:55)
[2020-04-10] MEDS: ACETAMINOPHEN 500 MG TABLET (FP) PO PRN (05:43)
[2020-04-10] MEDS: BUDESONIDE/FORMETEROL FUMARATE 160/4.5 mcg INHALER IH SCH ×2 (09:41→22:34)
[2020-04-10 11:42] LABS: BASO % 0.3 % (0-2.0); EOS % 0.4 % (0-4.5); HEMATOCRIT 46.6 % (35.4-49); HEMOGLOBIN 15.9 GM/dL (11.7-16.9); LYMPH % 40.7 % (8-40); MCH 30.1 pg (25.7-33.7); MCHC 34.2 g/dl (32.0-35.9); MEAN CELL VOLUME 88.3 fl (80-96); MEAN PLT VOLUME 8.4 fl (7.5-11.1); MONO % 9.2 % (3.8-10.2); NEUT % 49.4 % (42.8-82.8); PLATELET COUNT 157 K/MM3 (134-434); RBC 5.28 M/mm3 (4.00-5.60); RDW 13.5 % (11.9-15.9); WHITE BLOOD COUNT 3.2 K/mm3 (4.0-10.0)
[2020-04-10 12:02] LABS: POTASSIUM 3.7 mmol/L (3.5-5.1)
[2020-04-10 12:04] LABS: CALCIUM 8.2 mg/dL (8.5-10.1)
[2020-04-10 12:05] LABS: ALBUMIN 3.4 g/dl (3.4-5.0); BLOOD UREA NITROGEN 23.4 mg/dL (7-18)
[2020-04-10 12:08] LABS: CREATININE 1.1 mg/dL (0.55-1.3)
[2020-04-10 12:10] LABS: BILIRUBIN,TOTAL 0.9 mg/dL (0.2-1)
[2020-04-10] MEDS: REMDESIVIR 100 MG in SODIUM CHLORIDE 230 ML IVPB SCH (12:41)
[2020-04-10] MEDS ORDERED: ROSUVASTATIN CA 20 MG TABLET (FP) PO SCH (22:00)
[2020-04-10] MEDS: DEXAMETHASONE 4 MG TABLET (FP) PO SCH (22:32)
[2020-04-10] MEDS: ATORVASTATIN CA 10 MG TABLET (FP) PO SCH (22:33)
[2020-04-10] MEDS: ENOXAPARIN NA (PORCINE) 40 MG/0.4 ML DISP.SYRIN SQ SCH (22:33)
[2020-04-10] MEDS: MONTELUKAST NA 10 MG TABLET PO SCH (22:33)
[2020-04-11 08:52] LABS: BASO % 0.3 % (0-2.0); HEMATOCRIT 47.1 % (35.4-49); HEMOGLOBIN 16.1 GM/dL (11.7-16.9); LYMPH % 17.2 % (8-40); MCH 30.1 pg (25.7-33.7); MCHC 34.2 g/dl (32.0-35.9); MEAN CELL VOLUME 88.1 fl (80-96); MONO % 6.2 % (3.8-10.2); NEUT % 76.3 % (42.8-82.8); PLATELET COUNT 167 K/MM3 (134-434); RBC 5.35 M/mm3 (4.00-5.60); RDW 13.4 % (11.9-15.9); WHITE BLOOD COUNT 3.2 K/mm3 (4.0-10.0)
[2020-04-11 09:13] LABS: POTASSIUM 4.8 mmol/L (3.5-5.1)
[2020-04-11 09:15] LABS: BLOOD UREA NITROGEN 23.1 mg/dL (7-18); CALCIUM 8.6 mg/dL (8.5-10.1)
[2020-04-11 09:18] LABS: CREATININE 0.9 mg/dL (0.55-1.3)
[2020-04-11] MEDS ORDERED: PATIENT'S OWN MEDICATION (NON-FORMULARY) (Pitavastatin Calcium [Livalo] 2 MG Tablet) PO SCH (10:00)
[2020-04-11] MEDS ORDERED: LOSARTAN POTASSIUM 50 MG TABLET PO SCH (10:00)
[2020-04-11] MEDS ORDERED: ASPIRIN 81 MG CHEWABLE TABLETS PO SCH (10:00)
[2020-04-11] MEDS: ASPIRIN 81 MG CHEWABLE TABLETS PO SCH (10:33)
[2020-04-11] MEDS: TIOTROPIUM BROMIDE 2.5 MCG (SPIRIVA) RESPIMAT INHALER IH SCH (10:34)
[2020-04-11] MEDS: ENOXAPARIN NA (PORCINE) 40 MG/0.4 ML DISP.SYRIN SQ SCH (10:34)
[2020-04-11] MEDS: guaiFENesin/D-METHORPHAN HB 10 ML UNIT-DOSE CUPS PO PRN ×2 (10:34→17:21)
[2020-04-11] MEDS: REMDESIVIR 100 MG in SODIUM CHLORIDE 230 ML IVPB SCH (10:35)
[2020-04-11] MEDS: ACETAMINOPHEN 500 MG TABLET (FP) PO PRN ×2 (10:35→17:22)
[2020-04-11] MEDS: DEXAMETHASONE 4 MG TABLET (FP) PO SCH (10:35)
[2020-04-11] MEDS: BUDESONIDE/FORMETEROL FUMARATE 160/4.5 mcg INHALER IH SCH ×3 (10:50→21:54)
[2020-04-11] MEDS: ATORVASTATIN CA 10 MG TABLET (FP) PO SCH ×2 (21:47→21:53)
[2020-04-11] MEDS: MONTELUKAST NA 10 MG TABLET PO SCH (21:47)
[2020-04-12] MEDS: ENOXAPARIN NA (PORCINE) 40 MG/0.4 ML DISP.SYRIN SQ SCH (10:51)
[2020-04-12] MEDS: DEXAMETHASONE SOD PHOSPHATE 4 MG/1 ML VIAL IVPUSH SCH (10:51)
[2020-04-12] MEDS: ASPIRIN 81 MG CHEWABLE TABLETS PO SCH (10:51)
[2020-04-12] MEDS: BUDESONIDE/FORMETEROL FUMARATE 160/4.5 mcg INHALER IH SCH ×2 (10:52→21:09)
[2020-04-12] MEDS: TIOTROPIUM BROMIDE 2.5 MCG (SPIRIVA) RESPIMAT INHALER IH SCH (10:52)
[2020-04-12] MEDS: REMDESIVIR 100 MG in SODIUM CHLORIDE 230 ML IVPB SCH (13:38)
[2020-04-12] MEDS: MONTELUKAST NA 10 MG TABLET PO SCH (21:07)
[2020-04-12] MEDS: ACETAMINOPHEN 500 MG TABLET (FP) PO PRN (21:08)
[2020-04-12] MEDS: guaiFENesin/D-METHORPHAN HB 10 ML UNIT-DOSE CUPS PO PRN (21:09)
[2020-04-12] MEDS ORDERED: MELATONIN 5 MG TABLETS PO ONE (21:21)
[2020-04-13] MEDS ORDERED: PT OWN MED DRAWER 7, Y5N ONE ×3 (07:24→09:48)
[2020-04-13] MEDS: ASPIRIN 81 MG CHEWABLE TABLETS PO SCH (09:46)
[2020-04-13] MEDS: DEXAMETHASONE SOD PHOSPHATE 4 MG/1 ML VIAL IVPUSH SCH (09:49)
[2020-04-13] MEDS: ENOXAPARIN NA (PORCINE) 40 MG/0.4 ML DISP.SYRIN SQ SCH (09:54)
[2020-04-13] MEDS: TIOTROPIUM BROMIDE 2.5 MCG (SPIRIVA) RESPIMAT INHALER IH SCH (10:01)
[2020-04-13] MEDS: BUDESONIDE/FORMETEROL FUMARATE 160/4.5 mcg INHALER IH SCH ×2 (10:37→21:43)
[2020-04-13 10:40] LABS: CHOLESTEROL 120 mg/dL (50-200); TRIGLYCERIDES 106 mg/dL (0-150)
[2020-04-13 10:41] LABS: LDL CHOLESTEROL (ONLY SJRH) 71 mg/dL (5-100)
[2020-04-13 10:43] LABS: HDL CHOLESTEROL 31 mg/dL (40-60)
[2020-04-13] MEDS: REMDESIVIR 100 MG in SODIUM CHLORIDE 230 ML IVPB SCH (12:03)
[2020-04-13] MEDS: MONTELUKAST NA 10 MG TABLET PO SCH (21:41)
[2020-04-13] MEDS: ACETAMINOPHEN 500 MG TABLET (FP) PO PRN (21:45)
[2020-04-13] MEDS: guaiFENesin/D-METHORPHAN HB 10 ML UNIT-DOSE CUPS PO PRN (21:45)
[2020-04-13] MEDS ORDERED: MELATONIN 5 MG TABLETS PO ONE (22:27)
[2020-04-14] MEDS ORDERED: PT OWN MED DRAWER 7, Y5N ONE (09:52)
[2020-04-14] MEDS: TIOTROPIUM BROMIDE 2.5 MCG (SPIRIVA) RESPIMAT INHALER IH SCH (10:00)
[2020-04-14] MEDS: ASPIRIN 81 MG CHEWABLE TABLETS PO SCH (10:00)
[2020-04-14] MEDS: BUDESONIDE/FORMETEROL FUMARATE 160/4.5 mcg INHALER IH SCH ×2 (10:00→21:40)
[2020-04-14] MEDS: DEXAMETHASONE SOD PHOSPHATE 4 MG/1 ML VIAL IVPUSH SCH (10:01)
[2020-04-14] MEDS: ENOXAPARIN NA (PORCINE) 40 MG/0.4 ML DISP.SYRIN SQ SCH (10:02)
[2020-04-14 20:35] VITALS: BMI 35.2
[2020-04-14] MEDS: MONTELUKAST NA 10 MG TABLET PO SCH (21:40)
[2020-04-15 05:13] VITALS: BP 130/75; TEMP 97.5
[2020-04-15] MEDS: TIOTROPIUM BROMIDE 2.5 MCG (SPIRIVA) RESPIMAT INHALER IH SCH (09:43)
[2020-04-15] MEDS: ASPIRIN 81 MG CHEWABLE TABLETS PO SCH (09:43)
[2020-04-15] MEDS: ENOXAPARIN NA (PORCINE) 40 MG/0.4 ML DISP.SYRIN SQ SCH (09:43)
[2020-04-15] MEDS: BUDESONIDE/FORMETEROL FUMARATE 160/4.5 mcg INHALER IH SCH (09:43)
[2020-04-15] MEDS ORDERED: predniSONE 20 MG TABLET (UD) PO SCH (10:00)
[2020-04-15] MEDS ORDERED: APIXABAN 5 MG TABLET PO SCH (10:00)
[2020-04-15] MEDS: DEXAMETHASONE SOD PHOSPHATE 4 MG/1 ML VIAL IVPUSH SCH (10:05)
[2020-04-15 12:07] VITALS: PULSE 97
== END 2020-04-15 15:15 | disposition home or self-care (01) | DRG 177 ==
LOC: JER 22:50 → JERBED 04-08 02:45 → J5S 04-08 18:54 → J5WEST-2 04-09 18:55 → J8W 04-13 07:05
PROVIDERS: ADMIT Internal Medicine; ATTEND Internal Medicine
PROC: 8E0ZXY6 Isolation (ICD-10-PCS; 2020-04-08)
PROC: XW13325 Transfusion of Convalescent Plasma (Nonautologous) into Peripheral Vein, Percutaneous Approach, New Technology Group 5 (ICD-10-PCS; principal; 2020-04-09)
PROC: XW033E5 Introduction of Remdesivir Anti-infective into Peripheral Vein, Percutaneous Approach, New Technology Group 5 (ICD-10-PCS; 2020-04-09)
DX: U07.1 COVID-19 (principal); J12.82 Pneumonia due to coronavirus disease 2019; J96.01 Acute respiratory failure with hypoxia; J45.901 Unspecified asthma with (acute) exacerbation; E78.5 Hyperlipidemia, unspecified; I10 Essential (primary) hypertension; J44.9 Chronic obstructive pulmonary disease, unspecified; I25.2 Old myocardial infarction; I25.10 Atherosclerotic heart disease of native coronary artery without angina pectoris; R50.9 Fever, unspecified; E78.00 Pure hypercholesterolemia, unspecified
CPT/HCPCS: 36415; 36430; 71045-TC-FY; 80048; 80053; 80061; 81003; 82248; 82550; 82553; 82728; 82803; 83605; 83615; 83721; 84484; 85025; 85379; 85610; 85730; 86140; 86850; 86900; 86901; 87040; 87086; 87804; 93005; 93010; 94761; 99285-25; C9399; C9803; J1100; P9017; U0003

== ENCOUNTER 2021-09-05 04:25 | Day surgery (SDC) | payer BC ==
[2021-08-11 14:28] VITALS: BMI 36.6
[2021-09-05] MEDS ORDERED: BUPIVACAINE HCL/PF 0.25% (2.5MG/ML) 10 ML VIAL ONE (13:10)
[2021-09-05] MEDS ORDERED: PAPAVERINE HCL 30 MG/1 ML 10 ML VIAL NR ONE (13:10)
[2021-09-05] MEDS ORDERED: DEXTROSE 5%-0.45% SALINE 1,000 ML IV SCH (14:15)
[2021-09-05] MEDS ORDERED: IBUPROFEN 800 MG/8 ML IJ IVPB SCH (14:15)
[2021-09-05] MEDS ORDERED: DEXAMETHASONE SOD PHOSPHATE 4 MG/1 ML VIAL ONE (14:20)
[2021-09-05] MEDS ORDERED: MIDAZOLAM HCL 2 MG/2 ML SINGLE DOSE VIAL ONE ×2 (14:20)
[2021-09-05] MEDS ORDERED: ceFAZolin SODIUM 1 GM VIAL IVPB ONE (14:40)
[2021-09-05] MEDS ORDERED: ceFAZolin SODIUM 1 GM VIAL ONE (14:40)
[2021-09-05] MEDS ORDERED: oxyCODONE HCL 5 MG TABLET PO PRN ×2 (16:21)
[2021-09-05] MEDS ORDERED: ONDANSETRON 4 MG/2 ML VIAL IVPUSH PRN (16:21)
[2021-09-05] MEDS ORDERED: ACETAMINOPHEN INJECTION 100 ML IVPB ONE (16:22)
[2021-09-05] MEDS: ACETAMINOPHEN 1000 MG/100 ML BAG IVPB ONE ×2 (16:23→16:56)
[2021-09-05] MEDS ORDERED: FENTANYL CITRATE/PF 50 MCG/ML VIAL ONE ×2 (16:27→16:42)
[2021-09-05] MEDS ORDERED: LACTATED RINGERS SOLUTION 1,000 ML IV SCH (16:30)
[2021-09-05 18:30] VITALS: BP 123/78; PULSE 98; TEMP 98.8
== END 2021-09-05 18:35 | disposition home or self-care (01) ==
LOC: JASU-SURG 04:25
PROVIDERS: ATTEND Urology
PROC: 0VBH0ZZ Excision of Bilateral Spermatic Cords, Open Approach (ICD-10-PCS; principal; 2021-09-05 13:30)
DX: I86.1 Scrotal varices (principal); N50.812 Left testicular pain; N50.811 Right testicular pain; I10 Essential (primary) hypertension; I25.10 Atherosclerotic heart disease of native coronary artery without angina pectoris; E78.5 Hyperlipidemia, unspecified; J44.9 Chronic obstructive pulmonary disease, unspecified; Z99.81 Dependence on supplemental oxygen
CPT/HCPCS: 88304-TC; 94760

== ENCOUNTER 2022-01-10 04:31 | Day surgery (SDC) | payer BC ==
[2022-01-08 13:45] VITALS: BMI 33.2
[2022-01-10] MEDS ORDERED: BUPIVACAINE HCL/PF 0.5% (5MG/ML) 10 ML VIAL ONE (07:16)
[2022-01-10] MEDS ORDERED: BUPIVACAINE HCL/PF 0.5% (5MG/ML) 10 ML VIAL IJ ONE ×5 (07:29→08:44)
[2022-01-10] MEDS ORDERED: ONDANSETRON 4 MG/2 ML VIAL ONE (07:33)
[2022-01-10] MEDS ORDERED: DEXAMETHASONE SOD PHOSPHATE 4 MG/1 ML VIAL ONE (07:33)
[2022-01-10] MEDS ORDERED: PROPOFOL 20 ML ONE (07:33)
[2022-01-10] MEDS ORDERED: MIDAZOLAM HCL 2 MG/2 ML SINGLE DOSE VIAL ONE (07:33)
[2022-01-10] MEDS ORDERED: LIDOCAINE HCL/PF 2% SDV 5ML VIAL ONE (07:33)
[2022-01-10] MEDS ORDERED: LIDOCAINE 1%/EPI 1:100000 (20 ML MULTI DOSE VIAL) IJ ONE ×3 (08:02→08:33)
[2022-01-10] MEDS ORDERED: ceFAZolin SODIUM 1 GM VIAL ONE (08:24)
[2022-01-10] MEDS ORDERED: ceFAZolin SODIUM 1 GM VIAL IVPB ONE (08:24)
[2022-01-10 10:05] VITALS: PULSE 76; RESP 20
[2022-01-10 11:12] VITALS: BP 142/88; TEMP 97.8
[2022-01-10] MEDS ORDERED: ONDANSETRON 4 MG/2 ML VIAL IVPUSH PRN (11:29)
[2022-01-10] MEDS ORDERED: oxyCODONE HCL 5 MG TABLET PO PRN (11:29)
[2022-01-10] MEDS ORDERED: LACTATED RINGERS SOLUTION 1,000 ML IV SCH (11:30)
== END 2022-01-10 10:50 | disposition home or self-care (01) ==
LOC: JASU-SURG 04:31
PROVIDERS: ATTEND Orthopaedic Surgery
PROC: 0SBC4ZZ Excision of Right Knee Joint, Percutaneous Endoscopic Approach (ICD-10-PCS; principal; 2022-01-10 08:00)
DX: M23.221 Derangement of posterior horn of medial meniscus due to old tear or injury, right knee (principal); M17.11 Unilateral primary osteoarthritis, right knee
CPT/HCPCS: 94760

== ENCOUNTER 2023-01-04 15:55 | Emergency (ER) | payer OTHER, BC ==
[2023-01-04 16:09] VITALS: BP 125/73; PULSE 121; RESP 17; TEMP 98.3; BMI 44.9
[2023-01-04] MEDS ORDERED: ACETAMINOPHEN 500 MG TABLET (FP) PO ONE (16:32)
[2023-01-04] MEDS ORDERED: ACETAMINOPHEN 325 MG TABLET (FP) ONE (16:41)
[2023-01-04] MEDS ORDERED: KETOROLAC TROMETHAMINE 30 MG/1 ML VIAL IM ONE (17:19)
[2023-01-04] MEDS ORDERED: KETOROLAC TROMETHAMINE 30 MG/1 ML VIAL ONE (17:34)
== END 2023-01-04 17:56 | disposition home or self-care (01) ==
LOC: JERFT 15:55
PROC: 3E0233Z Introduction of Anti-inflammatory into Muscle, Percutaneous Approach (ICD-10-PCS; principal; 2023-01-04)
DX: S63.92XA Sprain of unspecified part of left wrist and hand, initial encounter (principal); M25.532 Pain in left wrist; R22.32 Localized swelling, mass and lump, left upper limb; S00.93XA Contusion of unspecified part of head, initial encounter; S00.212A Abrasion of left eyelid and periocular area, initial encounter; W11.XXXA Fall on and from ladder, initial encounter; Y92.008 Other place in unspecified non-institutional (private) residence as the place of occurrence of the external cause
CPT/HCPCS: 73110-TC-LT-FY; 73130-TC-LT-FY; 93005; 93010; 99284-25

== ENCOUNTER 2024-10-23 06:16 | Day surgery (SDC) | payer OTHER, BC ==
[2024-10-19 16:03] VITALS: BMI 32.3
[2024-10-23] MEDS ORDERED: LIDOCAINE HCL 1%, 10 MG/ML (20ML VIAL) ONE (07:47)
[2024-10-23] MEDS ORDERED: BACITRACIN ZINC 15 GM TUBE TOPICAL OINTMENT ONE (07:48)
[2024-10-23] MEDS ORDERED: PROPOFOL 20 ML ONE ×2 (08:12→08:57)
[2024-10-23] MEDS ORDERED: LIDOCAINE HCL/PF 2% SDV 5ML VIAL ONE (08:15)
[2024-10-23] MEDS ORDERED: ONDANSETRON 4 MG/2 ML VIAL ONE (08:23)
[2024-10-23] MEDS ORDERED: ACETAMINOPHEN INJECTION 100 ML ONE ×2 (08:23→09:53)
[2024-10-23] MEDS ORDERED: ONDANSETRON 4 MG/2 ML VIAL IVPUSH PRN (08:39)
[2024-10-23] MEDS ORDERED: PROMETHAZINE HCL 25 MG/1 ML VIAL IVPB PRN (08:39)
[2024-10-23] MEDS ORDERED: MIDAZOLAM HCL 2 MG/2 ML SINGLE DOSE VIAL ONE (08:44)
[2024-10-23] MEDS ORDERED: LACTATED RINGERS SOLUTION 1,000 ML IV SCH (08:45)
[2024-10-23] MEDS ORDERED: DEXTROSE 5%-0.45% SALINE 1,000 ML IV SCH (09:00)
[2024-10-23] MEDS: LIDOCAINE HCL 1%, 10 MG/ML (20ML VIAL) INF ONE ×3 (09:18)
[2024-10-23] MEDS: ACETAMINOPHEN 1000 MG/100 ML BAG IVPB ONE (09:54)
[2024-10-23 11:44] VITALS: RESP 18
[2024-10-23 12:08] VITALS: BP 136/73; PULSE 81; TEMP 98.2
== END 2024-10-23 12:29 | disposition home or self-care (01) ==
LOC: JASU-SURG 06:16
PROVIDERS: ATTEND Urology
PROC: 0VBG0ZZ Excision of Left Spermatic Cord, Open Approach (ICD-10-PCS; principal; 2024-10-23 09:00)
DX: N43.3 Hydrocele, unspecified (principal)
CPT/HCPCS: 88302-TC; 94760